=== PATIENT | female | born 1975 | race Hispanic/Latino ===

== ENCOUNTER 2018-11-06 13:24 | Emergency (ER) | payer BC, OTHER ==
[2018-11-06 14:11] LABS: Urine Blood TRACE (NEG); Urine Glucose 2+ (NEG); Urine Protein NEGATIVE (NEG); Urine Specific Gravity <1.005 (1.005-1.030)
[2018-11-06] MEDS ORDERED: ONDANSETRON 4 MG/2 ML VIAL ONE (15:57)
[2018-11-06] MEDS ORDERED: MORPHINE 4 MG/ML SYR ONE ×2 (15:57→19:21)
[2018-11-06 16:02] LABS: Absolute Lymphocytes (CBC) 3.3 K/uL (0.7-4.9); Absolute Monocytes 0.6 K/uL (0.1-1.3); Absolute Neutrophil 6.7 K/uL (1.8-8.0); Basophils % 0.7 % (0-1.3); Eosinophils % 1.8 % (0-4.4); Hematocrit 43.9 % (36.0-45.0); Lymphocytes % 30.1 % (15.3-44.8); MPV 11.6 fL (7.6-11.3); Monocytes % 5.2 % (3.3-12.3); RBC Red Blood Cell Count 5.01 M/uL (3.86-4.86)
[2018-11-06 16:32] LABS: Bicarbonate 24 mmol/L (21-32); Glucose Level 305 mg/dL (74-106); Potassium 4.2 mmol/L (3.5-5.1); Sodium Level 135 mmol/L (136-145)
[2018-11-06 16:33] LABS: ALT/SGPT 15 U/L (12-78); AST/SGOT 16 U/L (15-37); Albumin 3.6 g/dL (3.4-5.0); Alkaline Phosphatase 83 U/L (45-117); BUN Blood Urea Nitrogen 16 mg/dL (7-18); Bilirubin Direct 0.1 mg/dL (0-0.2); Bilirubin Total 0.6 mg/dL (0.2-1.0); Lipase 110 U/L (73-393); Protein, Total 7.7 g/dL (6.4-8.2)
--- NOTE | 2018-11-06 19:31 | RAD REPORT ---
EXAM DESCRIPTION: CT - Abdomen Pelvis W Contrast - 11/06/2018 7:19 pm CLINICAL HISTORY: Intermittent right lower quadrant pain COMPARISON: CT imaging April 2017 TECHNIQUE: Biphasic, helical CT imaging of the abdomen and pelvis was performed following 100 ml non -ionic IV contrast. Oral contrast was given. All CT scans are performed using dose optimization technique as appropriate and may include automated exposure control or mA/KV adjustment according to patient size. FINDINGS: No suspicious findings in the lung bases. The liver, spleen, and pancreas show no suspicious findings. Small hemangioma in the inferior aspect of the right lobe has not changed. Cholecystectomy clips are present. No biliary tree dilatation. Symmetric renal function is seen with no hydronephrosis or suspicious renal mass. No pyelonephritis o r acute parenchymal process. No bladder abnormalities. No adrenal abnormalities. Uterus and ovaries s how no acute findings. No significant change from comparison. No dilated bowel loops or bowel wall thickening. Partially retrocecal appendix is unremarkable. No ac tive bowel process seen. No free air, free fluid or inflammatory stranding. No hernia, mass or bulky lymphadenopathy. No suspicious bony findings. IMPRESSION: Contrast enhanced CT abdomen and pelvis showing no significant or suspicious finding. No significant change from April 2017.
--- NOTE | 2018-11-06 20:02 | ER ---
Nurse's Notes [facility] Name: Jill Arce Age: 43 yrs Sex: Female : 1975 Arrival Date: 11/06/2018 Time: 13:28 Bed 28 [facility] MD: Stephanie Mackay Diagnosis: Abdominal and pelvic pain Presentation: 11/06 13:38 Presenting complaint: Patient states: Intermittent RLQ pain that is described as sharp, ss radiates towards R flank/ mid back area with nausea. Pt states the pain began 2-3 days ago, but this morning became much worse. Transition of care: patient was not received from another setting of care. Onset of symptoms was November 03, 2018. Risk Assessment: Do you want to hurt yourself or someone else? Patient reports no desire to harm self or others. Initial Sepsis Screen: Does the patient meet any 2 criteria? No. Patient's initial sepsis screen is negative. Does the patient have a suspected source of infection? No. Patient's initial sepsis screen is negative. Care prior to arrival: None. 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 ss Historical: - Allergies: 13:40 NKA; ss - Home Meds: 13:40 bisoprolol fumarate 5 mg Oral tab 1 tab once daily [Active]; simvastatin 40 mg oral tab ss [Active]; aspirin 81 mg Oral TbEC 1 tab once daily [Active]; 15:47 glimepiride 4 mg Oral tab 1 tab once daily [Active]; Janumet 50-1,000 mg Oral tab 1 tab mg2 2 times per day [Active]; Jardiance 10 mg Oral tab 1 tab once daily [Active]; Tresiba FlexTouch U-100 100 unit/mL (3 mL) subcutaneous inpn [Active]; - PMHx: 13:40 Diabetes - NIDDM; Hyperlipidemia; Tachycardia; ss - PSHx: 13:40 Cholecystectomy; ss - Immunization history:: Adult Immunizations up to date. - Social history:: Smoking status: Patient/guardian denies using tobacco. - Ebola Screening: : Patient denies exposure to infectious person Patient denies travel to an Ebola-affected area in the 21 days before illness onset. Screenin:46 Abuse screen: Denies threats or abuse. Denies injuries from another. Nutritional mg2 screening: No deficits noted. Tuberculosis screening: No symptoms or risk factors identified. Fall Risk IV access (20 points). Assessment: 15:45 General: Appears in no apparent distress. comfortable, Behavior is calm, cooperative. mg2 Pain: Complains of pain in right lower quadrant and right flank Pain radiates to back Quality of pain is described as aching, Pain began gradually. Neuro: Level of Consciousness is awake, alert, obeys commands, Oriented to person, place, time, situation. Cardiovascular: Capillary refill < 3 seconds Patient's skin is warm and dry. Respiratory: Airway is patent Respiratory effort is even, unlabored, Respiratory pattern is regular, symmetrical. GI: Reports lower abdominal pain. : Reports pain in right flank(s). EENT: No signs and/or symptoms were reported regarding the EENT system. Derm: Skin is intact, is healthy with good turgor, Skin is pink, warm \T\ dry. normal. Musculoskeletal: Circulation, motion, and sensation intact. Capillary refill < 3 seconds. 16:57 Reassessment: Patient appears in no apparent distress at this time. Patient and/or mg2 family updated on plan of care and expected duration. Pain level reassessed. Patient is alert, oriented x 3, equal unlabored respirations, skin warm/dry/pink. Patient states feeling better. 20:17 Reassessment: Patient denies pain at this time. Patient states feeling better. mg2 Vital Signs: 13:37 BP 114 / 84; Pulse 92; Resp 17; Temp 97.8(TE); Pulse Ox 100% on R/A; Weight 84.37 kg; Height 5 ft. 5 in. (165.10 cm); Pain 9/10; 16:57 BP 108 / 71; Pulse 89; Resp 18; Pulse Ox 100% on R/A; Pain 1/10; mg2 18:01 BP 110 / 69; Pulse 80; Resp 18; Pulse Ox 100% on R/A; mg2 19:11 Pulse 83; Resp 18; Pulse Ox 100% on R/A; mg2 20:17 BP 115 / 78; Pulse 80; Resp 18; Pulse Ox 100% on R/A; Pain 0/10; mg2 13:37 Body Mass Index 30.95 (84.37 kg, 165.10 cm) ED Course: 13:28 Patient arrived in ED. rg4 13:28 Stephanie Mackay MD is Private Physician. rg4 13:37 Arm band placed on left wrist. 13:39 Triage completed. ss 15:24 [facility] 15:24 Ludwin Trejo MD is Attending Physician. jmm 15:32 Radiology exam delayed due to lab results not completed at this time. (BUN/Creatinine) vm2 test not completed at this time. 15:42 Alexander Durand, LASHONDA is Primary Nurse. mg2 15:43 Radiology exam delayed due to lab results not completed at this time. (BUN/Creatinine) vm2 test not completed at this time. 15:48 Patient has correct armband on for positive identification. Pulse ox on. NIBP on. Door mg2 closed. 15:48 No provider procedures requiring assistance completed. Inserted saline lock: 22 gauge mg2 in left forearm, using aseptic technique. Blood collected. by LASHONDA Mcgarry. 19:17 CT completed. Patient tolerated procedure well. Patient moved to CT. Patient moved back pr from CT. 19:19 CT Abd/Pelvis - W/Contrast In Process Unspecified. EDMS 20:01 Stephanie Mackay MD is Referral Physician. jmm 20:18 IV discontinued, intact, bleeding controlled, No redness/swelling at site. Pressure mg2 dressing applied. Administered Medications: 15:56 Drug: morphine 4 mg Route: IVP; Site: left forearm; rv 18:19 Follow up: Response: No adverse reaction; Marked relief of symptoms mg2 15:56 Drug: Zofran 4 mg Route: IVP; Site: left forearm; rv 18:19 Follow up: Response: No adverse reaction; Marked relief of symptoms mg2 19:10 Drug: morphine 4 mg Route: IVP; Site: left forearm; mg2 20:10 Follow up: Response: No adverse reaction; Marked relief of symptoms mg2 Outcome: 20:01 Discharge ordered by . jmm 20:18 Discharged to home ambulatory, with family. mg2 20:18 Condition: stable 20:18 Discharge instructions given to patient, family, Instructed on discharge instructions, follow up and referral plans. medication usage, Demonstrated understanding of instructions, follow-up care, medications, Prescriptions given X 1. 20:28 Patient left the ED. mg2 Signatures: Dispatcher [employer] EDMS Billy Retana PA PA jmm Smirch, Francy, RN RN ss Ami Price 4 Kiran Kearney Victoria 2 Alexander Durand, RN RN mg2 Zeferino Muñiz, RN RN rv
--- NOTE | 2018-11-06 20:02 | EDPHYS ---
Physician Documentation [facility] Name: Jill Arce Age: 43 yrs Sex: Female : 1975 Arrival Date: 11/06/2018 Time: 13:28 Bed 28 Private MD: Stephanie Mackay ED Physician Ludwin Trejo HPI: 11/06 15:34 This 43 yrs old Female presents to ER via Ambulatory with complaints of Flank jmm Pain. 15:34 The patient complains of pain in the right flank. Onset: The symptoms/episode jmm began/occurred gradually, 1 day(s) ago. Associated signs and symptoms: Pertinent positives: nausea, vomiting. This is a 43 year old female with a history of DM, that presents to the ED with complaints of right flank pain radiating into her right lower abdomen with 1 episode of vomiting today. Patient denies diarrhea. . 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 ss Historical: - Allergies: 13:40 NKA; ss - Home Meds: 13:40 bisoprolol fumarate 5 mg Oral tab 1 tab once daily [Active]; simvastatin 40 mg oral tab ss [Active]; aspirin 81 mg Oral TbEC 1 tab once daily [Active]; 15:47 glimepiride 4 mg Oral tab 1 tab once daily [Active]; Janumet 50-1,000 mg Oral tab 1 tab mg2 2 times per day [Active]; Jardiance 10 mg Oral tab 1 tab once daily [Active]; Tresiba FlexTouch U-100 100 unit/mL (3 mL) subcutaneous inpn [Active]; - PMHx: 13:40 Diabetes - NIDDM; Hyperlipidemia; Tachycardia; ss - PSHx: 13:40 Cholecystectomy; ss - Immunization history:: Adult Immunizations up to date. - Social history:: Smoking status: Patient/guardian denies using tobacco. - Ebola Screening: : Patient denies exposure to infectious person Patient denies travel to an Ebola-affected area in the 21 days before illness onset. ROS: 15:34 Constitutional: Negative for fever, chills, and weight loss, Cardiovascular: Negative jmm for chest pain, palpitations, and edema, Respiratory: Negative for shortness of breath, cough, wheezing, and pleuritic chest pain. 15:34 Abdomen/GI: Positive for abdominal pain, nausea and vomiting, Negative for diarrhea. 15:34 Back: Positive for flank pain, on the right. 15:34 All other systems are negative. Exam: 15:34 Constitutional: This is a well developed, well nourished patient who is awake, alert, jmm and in no acute distress. Head/Face: atraumatic. Eyes: EOMI, no conjunctival erythema appreciated ENT: Moist Mucus Membranes Neck: Trachea midline, Supple Chest/axilla: Normal chest wall appearance and motion. Cardiovascular: Regular rate and rhythm. No edema appreciated Respiratory: Normal respirations, no respiratory distress appreciated 15:34 Abdomen/GI: Inspection: abdomen appears normal, Bowel sounds: normal, Palpation: soft, mild abdominal tenderness, in the right lower quadrant. 15:34 Back: CVA tenderness, that is mild, is noted on the right. 15:34 Musculoskeletal/extremity: ROM: intact in all extremities. 15:34 Skin: Appearance: Color: normal in color. 15:34 Neuro: Orientation: is normal, Mentation: is normal, Memory: is normal. 15:34 Psych: Behavior/mood is pleasant, cooperative. Vital Signs: 13:37 BP 114 / 84; Pulse 92; Resp 17; Temp 97.8(TE); Pulse Ox 100% on R/A; Weight 84.37 kg; ss Height 5 ft. 5 in. (165.10 cm); Pain 9/10; 16:57 BP 108 / 71; Pulse 89; Resp 18; Pulse Ox 100% on R/A; Pain 1/10; mg2 18:01 BP 110 / 69; Pulse 80; Resp 18; Pulse Ox 100% on R/A; mg2 19:11 Pulse 83; Resp 18; Pulse Ox 100% on R/A; mg2 20:17 BP 115 / 78; Pulse 80; Resp 18; Pulse Ox 100% on R/A; Pain 0/10; mg2 13:37 Body Mass Index 30.95 (84.37 kg, 165.10 cm) MDM: 15:28 Patient medically screened. [facility] 20:00 Data reviewed: vital signs, nurses notes. Counseling: I had a detailed discussion with marshal the patient and/or guardian regarding: the historical points, exam findings, and any diagnostic results supporting the discharge/admit diagnosis, lab results, radiology results, the need for outpatient follow up, to return to the emergency department if symptoms worsen or persist or if there are any questions or concerns that arise at home. ED course: Patient's pain is relieved in the ED. Patient was advised to follow up with GI for further evaluation and otherwise given early appendicitis return precautions. Patient understood and agrees with the plan of care. . 11/06 13:59 Order name: Urine Dipstick--Ancillary (enter results); Complete Time: 15:17 11/06 15:29 Order name: Basic Metabolic Panel; Complete Time: 16:35 [facility] 11/06 15:29 Order name: CBC with Diff; Complete Time: 16:35 [facility] 11/06 15:29 Order name: Creatinine for Radiology; Complete Time: 16:35 [facility] 11/06 15:29 Order name: Hepatic Function; Complete Time: 16:35 [facility] 11/06 15:29 Order name: Lipase; Complete Time: 16:35 [facility] 11/06 13:58 Order name: Urine Dipstick-Ancillary (obtain specimen); Complete Time: 13:58 11/06 13:58 Order name: Urine Test (obtain specimen); Complete Time: 13:58 11/06 15:29 Order name: IV Saline Lock; Complete Time: 16:08 [facility] 11/06 15:29 Order name: CT Abd/Pelvis - W/Contrast; Complete Time: 19:55 [facility] 11/06 16:45 Order name: Test, Serum; Complete Time: 19:24 [facility] 11/06 15:29 Order name: Labs collected and sent; Complete Time: 16:09 [facility] Administered Medications: 15:56 Drug: morphine 4 mg Route: IVP; Site: left forearm; rv 18:19 Follow up: Response: No adverse reaction; Marked relief of symptoms mg2 15:56 Drug: Zofran 4 mg Route: IVP; Site: left forearm; rv 18:19 Follow up: Response: No adverse reaction; Marked relief of symptoms mg2 19:10 Drug: morphine 4 mg Route: IVP; Site: left forearm; mg2 20:10 Follow up: Response: No adverse reaction; Marked relief of symptoms mg2 Disposition: 11/06/18 20:01 Discharged to Home. Impression: Abdominal and pelvic pain. - Condition is Stable. - Discharge Instructions: Abdominal Pain, Adult, Pelvic Pain, Female. - Prescriptions for Ultracet 37.5- 325 mg Oral Tablet - take 1 tablet by ORAL route every 6 hours - for up to 5 days; do not exceed 8 tablets per day.; 12 tablet. - Medication Reconciliation Form, Thank You Letter, Antibiotic Education, Prescription Opioid Use, Work release form, Family Work Release form. - Follow up: Stephanie Mackay MD; When: 1 - 2 days; Reason: Recheck today's complaints, Continuance of care, Re-evaluation by your physician. Signatures: Dispatcher [employer] EDMS Billy Retana PA PA jmm Smirch, Shelby, RN RN ss Kulwant Linder MD MD gs Alexander Durand RN RN mg2 Zeferion Muñiz RN RN rv Corrections: (The following items were deleted from the chart) 20:28 20:01 11/06/2018 20:01 Discharged to Home. Impression: Abdominal and pelvic pain. mg2 Condition is Stable. Forms are Medication Reconciliation Form, Thank You Letter, Antibiotic Education, Prescription Opioid Use. Follow up: Stephanie Mackay; When: 1 - 2 days; Reason: Recheck today's complaints, Continuance of care, Re-evaluation by your physician. marshal
[2018-11-06 20:33] VITALS: TEMP 97.8; O2SAT 100
[2018-11-06 20:38] VITALS: BP 115/78
== END 2018-11-06 20:28 | disposition home or self-care (01) ==
LOC: ER 13:24
DX: R10.2 Pelvic and perineal pain (principal); E78.5 Hyperlipidemia, unspecified; E11.9 Type 2 diabetes mellitus without complications; Z79.82 Long term (current) use of aspirin; Z79.4 Long term (current) use of insulin
CPT/HCPCS: 36415; 74177; 80048; 80076; 81003; 83690; 84703; 85025; J2405; Q9967

== ENCOUNTER 2018-11-30 07:02 | Day surgery (SDC) | payer OTHER ==
[2018-11-30 07:23] LABS: Specific Gravity >= 1.030 (1.005-1.030)
[2018-11-30] MEDS ORDERED: CEFAZOLIN/SWI 1gm 1 GM/10 ML SYR ONE (07:30)
[2018-11-30] MEDS ORDERED: NA CHLORIDE 0.9% 1,000 ML ONE (07:30)
[2018-11-30] MEDS ORDERED: BUPIVACA 0.5%/EPI 0.0005%/PF 10 ML VIAL ONE (07:45)
[2018-11-30] MEDS ORDERED: PROPOFOL 200 MG/20 ML VIAL IV ONE (08:00)
[2018-11-30] MEDS ORDERED: MIDAZOLAM HCL 2 MG/2 ML INJ ONE (08:03)
[2018-11-30] MEDS ORDERED: LIDOCAINE 2% MPF 5 ML VIAL ONE (08:03)
[2018-11-30] MEDS ORDERED: FENTANYL CITR 100 MCG/2 ML ONE (08:03)
[2018-11-30] MEDS ORDERED: ONDANSETRON 4 MG/2 ML VIAL ONE (08:04)
--- NOTE | 2018-11-30 08:49 | P.OP ---
Preoperative diagnosis: Infected Sebaceous Cyst of Sternum Postoperative diagnosis: Infected Sebaceous Cyst of Sternum Primary procedure: Wide Local Excision of Infected Sebaceous Cyst of Sternum Anesthesia: GETA + Local Estimated blood loss: <5cc Specimen: Cultures and sternal tissue Findings: sebaceous material with pus Complications: None Transferred to: Recovery Room Condition: Good
[2018-11-30 10:20] VITALS: BP 107/71; TEMP 98; O2SAT 98
[2018-11-30] MEDS ORDERED: CODEINE 30MG/APAP 300MG TAB ONE (10:28)
--- NOTE | 2018-11-30 18:54 | OP ---
Date of Procedure: 11/30/2018 Surgeon: Fei Haley MD, Preoperative Diagnosis: Infected sebaceous cyst of sternum. Postoperative Diagnosis: Infected sebaceous cyst of sternum. Procedure Performed: Wide local excision of infected sebaceous cyst of sternum. Anesthesia: General endotracheal plus local cord with 0.5% Marcaine with epinephrine. Estimated Blood Loss: Less than 5 cc. Specimen: Cultures and sternal tissue. Findings: Sebaceous cyst material with pus approximately 3.5 cm x 2.5 cm x 3.5 cm depth. Disposition: Transferred to recovery room in good condition. Procedure In Detail: After informed consent was obtained, the patient was brought to the operating r oom, prepped and draped in the usual sterile fashion. After adequate anesthesia was achieved, a cent ral sternal cyst was anesthetized with 0.5% Marcaine with epinephrine. An elliptical incision was ma de around this for approximately 30 cm length. Dissection was continued down using electrocautery. Some purulent material was encountered. This was cultured for aerobic and anaerobic culture sent off at this time and the cyst was circumferentially removed intact with a rim of normal tissue and down to the adipose tissue only. This was sent off for pathologic examination. The incision site was the n copiously irrigated multiple times until completely clear. Hemostasis was easily achieved with lubna ctrocautery. The deep layers were closed using interrupted 3-0 Vicryl sutures, and the skin layer wa s closed with interrupted nylon sutures with good approximation of tissues. A sterile dressing was p laced over top. The patient tolerated the procedure well without evidence of complication and transferred to PACU in good condition. All counts were correct at the e nd of the case. DEX/BRANDON Voice ID: [id number] Report ID: [id number]
== END 2018-11-30 10:54 | disposition home or self-care (01) ==
LOC: OR 07:02
PROVIDERS: ATTEND Surgery
PROC: 0JB60ZZ Excision of Chest Subcutaneous Tissue and Fascia, Open Approach (ICD-10-PCS; principal; 2018-11-30 08:30)
DX: L72.3 Sebaceous cyst (principal); E11.9 Type 2 diabetes mellitus without complications; I10 Essential (primary) hypertension; E78.5 Hyperlipidemia, unspecified; E66.9 Obesity, unspecified; K76.0 Fatty (change of) liver, not elsewhere classified; Z90.49 Acquired absence of other specified parts of digestive tract; Z83.3 Family history of diabetes mellitus; Z82.49 Family history of ischemic heart disease and other diseases of the circulatory system
CPT/HCPCS: 81025; 82962; 87070; 87075; 87077; 87186; 87205; 88304; J0690; J2250; J2405; J2704; J3010; J7030

== ENCOUNTER 2019-04-21 18:21 | Emergency (ER) | payer OTHER ==
[2019-04-21] MEDS ORDERED: KETOROLAC 30 MG/ML INJ ONE (18:47)
[2019-04-21] MEDS ORDERED: NA CHLORIDE 0.9% 1,000 ML ONE (18:48)
[2019-04-21] MEDS ORDERED: ONDANSETRON 4 MG/2 ML VIAL ONE (18:48)
[2019-04-21 19:06] LABS: Absolute Lymphocytes (CBC) 3.2 K/uL (0.7-4.9); Basophils % 0.5 % (0-1.3); Lymphocytes % 37.6 % (15.3-44.8); MPV 10.1 fL (7.6-11.3); RBC Red Blood Cell Count 4.56 M/uL (3.86-4.86)
[2019-04-21 19:19] LABS: Potassium 3.7 mmol/L (3.5-5.1)
--- NOTE | 2019-04-21 19:46 | RAD REPORT ---
EXAM DESCRIPTION: CTAbdomen Pelvis W Contrast - 04/21/2019 7:34 pm CLINICAL HISTORY: Abdominal pain. ABD PAIN COMPARISON: Abdomen Pelvis W Contrast dated 11/06/2018; Abdomen Pelvis W Contrast dated 7; Abdomen Pelvis W Contrast dated 11/10/2015; CT ABD PELVIS W CONTRAST dated 04/03/[address]: [address] imaging of the abdomen and pelvis was performed with 100 ml non-ionic IV cont rast. All CT scans are performed using dose optimization technique as appropriate and may include automated exposure control or mA/KV adjustment according to patient size. FINDINGS: The lung bases are clear. Cholecystectomy. The liver demonstrates a stable 2 cm hemangioma within the far inferior right lobe. No aggressive amarilys er lesion or biliary dilatation. Spleen, pancreas, adrenal glands and kidneys are within normal limit s. No bowel obstruction, free air, free fluid or abscess. The appendix is normal. No evidence of signi ficant lymphadenopathy. No suspicious bony findings. IMPRESSION: No acute intra-abdominal or pelvic finding.
--- NOTE | 2019-04-21 19:54 | ER ---
Nurse's Notes [facility] Name: Jill Arce Age: 44 yrs Sex: Female : 1975 Arrival Date: 04/21/2019 Time: 18:24 Bed 6 Private MD: Stephanie Mackay Diagnosis: Lower abdominal pain, unspecified Presentation: 04/21 18:27 Presenting complaint: Patient states: RLQ abd pain for 2 days, diarrhea for one day. la1 Transition of care: patient was not received from another setting of care. Onset of symptoms was April 21, 2019. Risk Assessment: Do you want to hurt yourself or someone else? Patient reports no desire to harm self or others. Initial Sepsis Screen: Does the patient meet any 2 criteria? No. Patient's initial sepsis screen is negative. Does the patient have a suspected source of infection? No. Patient's initial sepsis screen is negative. Care prior to arrival: None. 18:27 Method Of Arrival: Ambulatory la1 18:27 Acuity: DAWOOD 3 la1 Triage Assessment: 18:30 General: Appears in no apparent distress. uncomfortable, obese, Behavior is bp cooperative, appropriate for age, anxious. Pain: Complains of pain in right lower quadrant. EENT: No deficits noted. Neuro: No deficits noted. Cardiovascular: No deficits noted. Respiratory: No deficits noted. GI: Reports lower abdominal pain, diarrhea. : No signs and/or symptoms were reported regarding the genitourinary system. Derm: No deficits noted. Musculoskeletal: No deficits noted. 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 - Social history:: Smoking status: Patient/guardian denies using tobacco. - Ebola Screening: : No symptoms or risks identified at this time. Screenin:42 Abuse screen: Denies threats or abuse. Denies injuries from another. Nutritional bp screening: No deficits noted. Tuberculosis screening: No symptoms or risk factors identified. Fall Risk None identified. Assessment: 18:30 General: SEE TRIAGE NOTE. bp 19:10 General: Appears uncomfortable, Behavior is appropriate for age. Pain: Complains of ea pain in left lower quadrant and right lower quadrant. Neuro: Level of Consciousness is awake, alert, obeys commands, Oriented to person, place, time, situation. Cardiovascular: Patient's skin is warm and dry. Respiratory: Airway is patent Respiratory effort is even, unlabored, Respiratory pattern is regular, symmetrical. Derm: Skin is pink, warm \T\ dry. 19:15 GI: Bowel sounds present X 4 quads. Abd is soft and non tender X 4 quads. cc3 19:31 Reassessment: Patient and/or family updated on plan of care and expected duration. Pain ea level reassessed. Patient is alert, oriented x 3, equal unlabored respirations, skin warm/dry/pink. Pt taken to CT. 19:40 Reassessment: Patient came back from CT scan department, awaiting result. cc3 20:00 Reassessment: Patient appears in no apparent distress at this time. Patient and/or cc3 family updated on plan of care and expected duration. Pain level reassessed. Patient is alert, oriented x 3, equal unlabored respirations, skin warm/dry/pink. HORTENSIA Mayfield discharged the patient home with prescriptions given. IV cannula removed and patient left ER vitally stable and ambulatory with her daughter. No valuables left in the patient's room. Patient denies pain at this time. Patient states feeling better. Patient states symptoms have improved. Vital Signs: 18:28 BP 135 / 81; Pulse 96; Resp 16; Temp 98.1; Pulse Ox 100% on R/A; Weight 86.18 kg; la1 Height 5 ft. 5 in. (165.10 cm); 19:20 BP 119 / 75; Pulse 83; Resp 17 S; Temp 98.4(O); Pulse Ox 100% on R/A; Pain 8/10; cc3 20:00 BP 131 / 81; Pulse 80; Resp 16 S; Pulse Ox 100% on R/A; Pain 2/10; cc3 18:28 Body Mass Index 31.62 (86.18 kg, 165.10 cm) la1 ED Course: 18:24 Patient arrived in ED. mr 18:24 Stephanie Mackay MD is Private Physician. mr 18:27 Arm band placed on right wrist. la1 18:28 Triage completed. la1 18:29 Karol [facility]field FNP-C [facility]. kb 18:29 Royce Hwang MD is Attending Physician. kb 18:30 Jian Lundberg, RN is Primary Nurse. bp 18:42 Patient has correct armband on for positive identification. Bed in low position. Call bp light in reach. Side rails up X2. Adult w/ patient. 18:49 Radiology exam delayed due to lab results not completed at this time. (BUN/Creatinine) kw1 test not completed at this time. 19:00 Inserted saline lock: 22 gauge in right forearm, using aseptic technique. Blood bp collected. 19:34 CT Abd/Pelvis - IV Contrast Only In Process Unspecified. EDMS 20:00 No provider procedures requiring assistance completed. IV discontinued, intact, cc3 bleeding controlled, No redness/swelling at site. Pressure dressing applied. Administered Medications: 19:00 Drug: NS 0.9% 1000 ml Route: IV; Rate: 1000 ml; Site: right forearm; bp 20:00 Follow up: Response: No adverse reaction; IV Status: Completed infusion; IV Intake: cc3 1000ml 19:00 Drug: Zofran 4 mg Route: IVP; Site: right forearm; bp 19:20 Follow up: Response: No adverse reaction; Nausea is decreased cc3 19:00 Drug: TORadol 30 mg Route: IVP; Site: right forearm; bp 19:20 Follow up: Response: No adverse reaction; Pain is decreased cc3 Intake: 20:00 IV: 1000ml; Total: 1000ml. cc3 Outcome: 19:52 Discharge ordered by MD. kb 20:00 Discharged to home ambulatory, with family. cc3 20:00 Condition: stable 20:00 Discharge instructions given to patient, Instructed on discharge instructions, follow up and referral plans. medication usage, Demonstrated understanding of instructions, follow-up care, medications, Prescriptions given X 2. 20:05 Patient left the ED. cc3 Signatures: Dispatcher [employer] EDPR Karol Mayfield FNP-C FNP-Parker nAju LagosVictorino, RN RN Mary Hammond RN RN ea Peltier, Brian, RN RN bp Talia Mckinley kw1 Zo Bone cc3
--- NOTE | 2019-04-21 19:54 | EDPHYS ---
Physician Documentation [facility] Name: Jill Arce Age: 44 yrs Sex: Female : 1975 Arrival Date: 04/21/2019 Time: 18:24 Bed 6 Private MD: Stephanie Mackay ED Physician Royce Hwang HPI: 04/21 18:52 This 44 yrs old Female presents to ER via Ambulatory with complaints of kb Abdominal Pain. 18:52 The patient presents with abdominal pain right lower quadrant. Onset: The kb symptoms/episode began/occurred 3 day(s) ago. The symptoms do not radiate. Associated signs and symptoms: Pertinent positives: diarrhea, nausea, Pertinent negatives: dysuria, fever, vomiting. The symptoms are described as constant. Modifying factors: The symptoms are alleviated by nothing, the symptoms are aggravated by pressure. Severity of pain: At its worst the pain was moderate in the emergency department the pain is unchanged. The patient has not experienced similar symptoms in the past. The patient has not recently seen a physician. Pt reports pain to abd that started on and is now localized to RLQ. 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 - Social history:: Smoking status: Patient/guardian denies using tobacco. - Ebola Screening: : No symptoms or risks identified at this time. ROS: 18:52 Constitutional: Negative for fever, chills, and weight loss, ENT: Negative for injury, kb pain, and discharge, Neck: Negative for injury, pain, and swelling, Cardiovascular: Negative for chest pain, palpitations, and edema, Respiratory: Negative for shortness of breath, cough, wheezing, and pleuritic chest pain, Back: Negative for injury and pain, : Negative for injury, bleeding, discharge, and swelling, MS/Extremity: Negative for injury and deformity, Skin: Negative for injury, rash, and discoloration, Neuro: Negative for headache, weakness, numbness, tingling, and seizure. 18:52 Abdomen/GI: Positive for abdominal pain, nausea, diarrhea. Exam: 18:52 Constitutional: This is a well developed, well nourished patient who is awake, alert, kb and in no acute distress. Head/Face: Normocephalic, atraumatic. ENT: Nares patent. No nasal discharge, no septal abnormalities noted. Tympanic membranes are normal and external auditory canals are clear. Oropharynx with no redness, swelling, or masses, exudates, or evidence of obstruction, uvula midline. Mucous membranes moist. Neck: Trachea midline, no thyromegaly or masses palpated, and no cervical lymphadenopathy. Supple, full range of motion without nuchal rigidity, or vertebral point tenderness. No Meningismus. Chest/axilla: Normal chest wall appearance and motion. Nontender with no deformity. No lesions are appreciated. Cardiovascular: Regular rate and rhythm with a normal S1 and S2. No gallops, murmurs, or rubs. Normal PMI, no JVD. No pulse deficits. Respiratory: Lungs have equal breath sounds bilaterally, clear to auscultation and percussion. No rales, rhonchi or wheezes noted. No increased work of breathing, no retractions or nasal flaring. Back: No spinal tenderness. No costovertebral tenderness. Full range of motion. Skin: Warm, dry with normal turgor. Normal color with no rashes, no lesions, and no evidence of cellulitis. MS/ Extremity: Pulses equal, no cyanosis. Neurovascular intact. Full, normal range of motion. Neuro: Awake and alert, GCS 15, oriented to person, place, time, and situation. Cranial nerves II-XII grossly intact. Motor strength 5/5 in all extremities. Sensory grossly intact. Cerebellar exam normal. Normal gait. 18:52 Abdomen/GI: Inspection: abdomen appears normal, Bowel sounds: normal, in all quadrants, Palpation: soft, in all quadrants, moderate abdominal tenderness, in the right lower quadrant and left lower quadrant. Vital Signs: 18:28 BP 135 / 81; Pulse 96; Resp 16; Temp 98.1; Pulse Ox 100% on R/A; Weight 86.18 kg; la1 Height 5 ft. 5 in. (165.10 cm); 19:20 BP 119 / 75; Pulse 83; Resp 17 S; Temp 98.4(O); Pulse Ox 100% on R/A; Pain 8/10; cc3 20:00 BP 131 / 81; Pulse 80; Resp 16 S; Pulse Ox 100% on R/A; Pain 2/10; cc3 18:28 Body Mass Index 31.62 (86.18 kg, 165.10 cm) la1 MDM: 18:29 Patient medically screened. kb 18:51 Data reviewed: vital signs, nurses notes. Data interpreted: Pulse oximetry: on room air kb is 100 %. Interpretation: normal. 19:50 Counseling: I had a detailed discussion with the patient and/or guardian regarding: the kb historical points, exam findings, and any diagnostic results supporting the discharge/admit diagnosis, lab results, radiology results, the need for outpatient follow up, a family practitioner, to return to the emergency department if symptoms worsen or persist or if there are any questions or concerns that arise at home. 04/21 18:44 Order name: Basic Metabolic Panel; Complete Time: 19:21 jl7 04/21 18:44 Order name: CBC with Diff; Complete Time: 19:13 [facility] 04/21 18:44 Order name: CT Abd/Pelvis - IV Contrast Only; Complete Time: 19:50 7 04/21 18:45 Order name: Urine Dipstick--Ancillary (enter results) [facility] 04/21 18:45 Order name: Urine --Ancillary (enter results) [facility] 04/21 18:44 Order name: IV Saline Lock; Complete Time: 19:00 jl7 04/21 18:44 Order name: Labs collected and sent; Complete Time: 19:00 jl7 Administered Medications: 19:00 Drug: NS 0.9% 1000 ml Route: IV; Rate: 1000 ml; Site: right forearm; bp 20:00 Follow up: Response: No adverse reaction; IV Status: Completed infusion; IV Intake: cc3 1000ml 19:00 Drug: Zofran 4 mg Route: IVP; Site: right forearm; bp 19:20 Follow up: Response: No adverse reaction; Nausea is decreased cc3 19:00 Drug: TORadol 30 mg Route: IVP; Site: right forearm; bp 19:20 Follow up: Response: No adverse reaction; Pain is decreased cc3 Disposition: 04/22 07:17 Co-signature as Attending Physician, Royce Hwang MD I agree with the assessment and kdr plan of care. Disposition: 04/21/19 19:52 Discharged to Home. Impression: Lower abdominal pain, unspecified. - Condition is Stable. - Discharge Instructions: Abdominal Pain, Adult, Kpin-jp-Iups. - Prescriptions for Diclofenac Sodium 75 mg Oral Tablet, Delayed Release (E.C.) - take 1 tablet by ORAL route 2 times per day As needed; 30 tablet. Zofran 4 mg Oral Tablet - take 1 tablet by ORAL route every 6 hours As needed; 20 tablet. - Medication Reconciliation Form, Thank You Letter, Antibiotic Education, Prescription Opioid Use form. - Follow up: Emergency Department; When: As needed; Reason: Worsening of condition. Follow up: Private Physician; When: 2 - 3 days; Reason: Recheck today's complaints, Continuance of care, Re-evaluation by your physician. Signatures: Dispatcher [employer] EDMS Karol Mayfield, YOAN-C TELE MARKETING EXECUTIVE-Ckb Royce Hwang MD MD kdr Attema, Lee RN RN la1 Ford Knight RN RN jl7 Jian Lundberg RN RN bp Zo Bone cc3 Corrections: (The following items were deleted from the chart) 04/21 20:05 19:52 04/21/2019 19:52 Discharged to Home. Impression: Lower abdominal pain, cc3 unspecified. Condition is Stable. Forms are Medication Reconciliation Form, Thank You Letter, Antibiotic Education, Prescription Opioid Use. Follow up: Emergency Department; When: As needed; Reason: Worsening of condition. Follow up: Private Physician; When: 2 - 3 days; Reason: Recheck today's complaints, Continuance of care, Re-evaluation by your physician. kb
[2019-04-21 20:13] VITALS: O2SAT 100
[2019-04-21 20:13] LABS: Urine Blood NEGATIVE (NEG); Urine Glucose 2+ (NEG); Urine Protein NEGATIVE (NEG); Urine Specific Gravity 1.015 (1.005-1.030)
[2019-04-21 20:14] VITALS: BP 119/75; TEMP 98.4
== END 2019-04-21 20:05 | disposition home or self-care (01) ==
LOC: ER 18:21
DX: R10.31 Right lower quadrant pain (principal)
CPT/HCPCS: 96361; 85025; 80048; 36415; 81025; 81003; 74177; 96375; 96374; 99284; Q9967; J7030; J2405

== ENCOUNTER 2021-06-16 16:12 | Emergency (ER) | payer OTHER ==
--- OUTSIDE RECORDS SUMMARY | 2021-06-16 16:14 | XMS REPORT | Continuity of Care Document ---
:1975 Author Organization [facility] t Address [address] [place] [address] Dr. Jonas [address] [place] [id number] Care Team Providers Name Role Phone Colten MYLES Attending Clinician Unavailable Payers Payer Name Policy Type Policy Number Effective Date Expiration Date S spike [facility] - [id number] 2014 00:00:00 OUT OF STATE Problems This patient has no known problems. Allergies, Adverse Reactions, Alerts Allergy Allergy Status Severity Reaction(s) Onset Inactive Treating Comm ents Source Name Type Date Date Clinician NO KNOWN Drug Active [facility] DRUG Class 2-20 ity of [place] 00:00: [address] Medications This patient has no known medications. Procedures This patient has no known procedures. Encounters Start End Encounter Admission Attending Care Care Encounter Source Date/Time Date/Time Type Type Clinicians Facility Department ID 2021-03-20 2021-03-20 Outpatient Shannan MYLES [facility] [id number] [facility] 08:15:00 08:15:00 YSABEL [id number] [facility] 2021-03-20 2021-03-20 Outpatient Shannan MYLES [facility] [id number] [facility] 08:15:00 08:15:00 YSABEL [facility] Results This patient has no known results.
[2021-06-16 18:09] LABS: Urine Blood Negative (Negative); Urine Glucose Negative (Negative); Urine Protein Negative (Negative)
[2021-06-16 18:11] LABS: Absolute Lymphocytes (CBC) 4.3 K/uL (0.7-4.9); Basophils % 0.9 % (0-1.3); Hematocrit 42.9 % (36.0-45.0); Lymphocytes % 34.6 % (15.3-44.8); MPV 10.3 fL (7.6-11.3); RBC Red Blood Cell Count 5.07 M/uL (3.86-4.86)
[2021-06-16 18:17] LABS: Urine Bacteria <20 /HPF (<20); Urine Mucus 1+ /HPF (NONE SEEN); Urine RBC <5 /HPF (NONE SEEN)
[2021-06-16] MEDS ORDERED: MORPHINE 4 MG/ML SYR ONE (18:27)
[2021-06-16 18:28] LABS: Albumin 3.6 g/dL (3.4-5.0); Bilirubin Direct 0.2 mg/dL (0-0.2); Bilirubin Total 0.9 mg/dL (0.2-1.0); Potassium 3.5 mmol/L (3.5-5.1); Protein, Total 8.3 g/dL (6.4-8.2)
[2021-06-16] MEDS ORDERED: ONDANSETRON 4 MG/2 ML VIAL ONE (18:28)
--- NOTE | 2021-06-16 19:20 | RAD REPORT ---
EXAM DESCRIPTION: CT - Abdomen Pelvis W Contrast - 06/16/2021 6:54 pm CLINICAL HISTORY: Abdominal pain COMPARISON: 2019 TECHNIQUE: Computed axial tomography of the abdomen pelvis was obtained. 100 cc Isovue-300 was admin istered intravenously. Oral contrast was not requested which limits evaluation of bowel. All CT scans are performed using dose optimization technique as appropriate and may include automated exposure control or mA/KV adjustment according to patient size. FINDINGS: The liver, spleen, pancreas, and adrenals appear unremarkable. Mild bilateral renal cortical thinning may be secondary to prior inflammation. There is no evidence of diverticulitis. Normal appendix Cholecystectomy. Tiny umbilical hernia IMPRESSION: No acute abnormality is displayed.
--- NOTE | 2021-06-16 20:31 | EDPHYS ---
Physician Documentation [facility] Name: Jill Arce Age: 46 yrs Sex: Female : 1975 Arrival Date: 06/16/2021 Time: 16:19 Bed 18 Private MD: ED Physician Danny Landon HPI: 06/16 18:25 This 46 yrs old Female presents to ER via Ambulatory with complaints of jr8 Abdominal Pain. 18:25 This is a 46-year-old female who presented to the emergency room with complaints of jr8 right lower quadrant abdominal pain and diarrhea. Patient stated that is been hurting on and off for the past week but for the past 3 days has been continuous. Denies fevers but has had body aches and chills. No other symptoms at this time other than the aforementioned.. 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 Historical: - Allergies: 16:48 NKA; ld1 - Home Meds: 16:48 aspirin 81 mg Oral TbEC 1 tab once daily [Active]; bisoprolol fumarate 5 mg Oral tab 1 ld1 tab once daily [Active]; glimepiride 4 mg Oral tab 1 tab once daily [Active]; Janumet 50-1,000 mg Oral tab 1 tab 2 times per day [Active]; Jardiance 10 mg Oral tab 1 tab once daily [Active]; simvastatin 40 mg Oral tab [Active]; Tresiba FlexTouch U-100 100 unit/mL (3 mL) subcutaneous inpn [Active]; Metformin Oral [Active]; - PMHx: 16:48 Diabetes - NIDDM; Hyperlipidemia; Tachycardia; ld1 - PSHx: 16:48 Cholecystectomy; ld1 - Immunization history:: Adult Immunizations up to date, Client reports receiving the 2nd dose of the Covid vaccine. - Social history:: Smoking status: Patient denies any tobacco usage or history of. Patient/guardian denies using alcohol. ROS: 18:25 Eyes: Negative for injury, pain, redness, and discharge, ENT: Negative for injury, jr8 pain, and discharge, Neck: Negative for injury, pain, and swelling, Cardiovascular: Negative for chest pain, palpitations, and edema, Respiratory: Negative for shortness of breath, cough, wheezing, and pleuritic chest pain, Back: Negative for injury and pain, MS/Extremity: Negative for injury and deformity, Skin: Negative for injury, rash, and discoloration, Neuro: Negative for headache, weakness, numbness, tingling, and seizure. 18:25 Abdomen/GI: Positive for abdominal pain, diarrhea, Negative for nausea, vomiting, abdominal distension, hematemesis, black/tarry stool, rectal pain, rectal bleeding, bowel incontinence, flatulence. Exam: 18:25 Cardiovascular: Regular rate and rhythm with a normal S1 and S2. No gallops, murmurs, jr8 or rubs. Normal PMI, no JVD. No pulse deficits. Respiratory: Lungs have equal breath sounds bilaterally, clear to auscultation and percussion. No rales, rhonchi or wheezes noted. No increased work of breathing, no retractions or nasal flaring. Back: No spinal tenderness. No costovertebral tenderness. Full range of motion. Skin: Warm, dry with normal turgor. Normal color with no rashes, no lesions, and no evidence of cellulitis. MS/ Extremity: Pulses equal, no cyanosis. Neurovascular intact. Full, normal range of motion. Neuro: Awake and alert, GCS 15, oriented to person, place, time, and situation. Cranial nerves II-XII grossly intact. Motor strength 5/5 in all extremities. Sensory grossly intact. 18:25 Abdomen/GI: Inspection: obese Bowel sounds: active, all quadrants, Palpation: soft, in all quadrants, moderate abdominal tenderness, in the right lower quadrant, mass, is not appreciated, rebound tenderness, is not appreciated, voluntary guarding, is not appreciated, involuntary guarding, is not appreciated, no appreciated organomegaly, Indicators: McBurney's point is not tender, Correia's sign is negative, Rovsing's sign is negative, Liver: tenderness, is not appreciated. Vital Signs: 16:45 BP 125 / 72; Pulse 96; Resp 18; Temp 97.8(O); Pulse Ox 100% on R/A; Weight 86.18 kg; ld1 Height 5 ft. 5 in. (165.10 cm); Pain 9/10; 18:34 BP 109 / 75; Pulse 97; Resp 18; Pulse Ox 100% on R/A; Pain 9/10; ll1 19:56 BP 111 / 77; Pulse 95; Resp 18; Pulse Ox 100% on R/A; ld1 16:45 Body Mass Index 31.62 (86.18 kg, 165.10 cm) ld1 MDM: 17:43 Patient medically screened. [facility] 20:29 Data reviewed: vital signs, nurses notes, lab test result(s), radiologic studies, CT jr8 scan, and as a result, I will discharge patient. Data interpreted: Pulse oximetry: on room air is 100 %. Interpretation: normal. Counseling: I had a detailed discussion with the patient and/or guardian regarding: the historical points, exam findings, and any diagnostic results supporting the discharge/admit diagnosis, lab results, radiology results, the need for outpatient follow up, a family practitioner, to return to the emergency department if symptoms worsen or persist or if there are any questions or concerns that arise at home. Response to treatment: the patient's symptoms have mildly improved after treatment. Special discussion: Based on the patient's Hx, exam, and Dx evaluation, there is no indication for emergent surgery or inpatient Tx. It is understood by the patient/guardian that if the Sx's persist or worsen they need to return immediately for re-evaluation. 06/16 17:42 Order name: Basic Metabolic Panel [facility] 06/16 17:42 Order name: CBC with Diff; Complete Time: 18:15 [facility] 06/16 17:42 Order name: Hepatic Function; Complete Time: 18:35 [facility] 06/16 17:42 Order name: Lipase; Complete Time: 18:35 [facility] 06/16 17:42 Order name: Urine Microscopic Only; Complete Time: 18:22 [facility] 06/16 17:43 Order name: Basic Metabolic Panel; Complete Time: 18:35 [facility] 06/16 17:42 Order name: IV Saline Lock; Complete Time: 17:48 [facility] 06/16 18:09 Order name: Urine Dipstick-Ancillary; Complete Time: 18:11 [facility] 06/16 18:19 Order name: Urine Culture [facility] 06/16 18:21 Order name: Urine --Ancillary (enter results) 06/16 18:21 Order name: Urine --Ancillary; Complete Time: 18:27 [facility] 06/16 18:22 Order name: CT Abd/Pelvis - IV Contrast Only; Complete Time: 20:29 [facility] 06/16 17:42 Order name: Labs collected and sent; Complete Time: 17:48 jr8 06/16 17:42 Order name: Urine Dipstick-Ancillary (obtain specimen); Complete Time: 18:22 jr8 06/16 17:42 Order name: Urine Test (obtain specimen); Complete Time: 18:22 jr8 Administered Medications: 18:34 Drug: morphine 4 mg {Note: rass 0.} Route: IVP; Site: right forearm; ll1 19:27 Follow up: Response: No adverse reaction ll1 18:34 Drug: Zofran (Ondansetron) 4 mg Route: IVP; Site: right forearm; ll1 19:27 Follow up: Response: No adverse reaction ll1 Disposition: 06/17 10:31 Co-signature as Attending Physician, Danny Landon MD I agree with the assessment and mik plan of care. Disposition Summary: 06/16/21 20:30 Discharge Ordered Location: Home jr8 Problem: new jr8 Symptoms: have improved jr8 Condition: Stable jr8 Diagnosis - UTI/ Urinary tract infection, site not specified jr8 - Right lower quadrant abdominal tenderness jr8 Followup: jr8 - With: Private Physician - When: 2 - 3 days - Reason: Recheck today's complaints, Continuance of care, Re-evaluation by your physician Discharge Instructions: - Discharge Summary Sheet jr8 - Abdominal Pain, Adult jr8 - Urinary Tract Infection, Adult jr8 Forms: - Medication Reconciliation Form jr8 - Thank You Letter jr8 - Antibiotic Education jr8 - Prescription Opioid Use jr8 - Family Work Release ld1 - Work release form ld1 Prescriptions: - Macrobid 100 mg Oral Capsule - take 1 capsule by ORAL route every 12 hours for 7 days; 14 capsule; Refills: 0, jr8 Product Selection Permitted Signatures: Dispatcher [employer] Danny Soliman MD MD cha Roszak, Josh, PA PA jr8 Pramod Delgado RN RN ll1 Martha Urbina RN RN ld1
--- NOTE | 2021-06-16 20:31 | ER ---
Nurse's Notes [facility] Name: Jill Arce Age: 46 yrs Sex: Female : 1975 Arrival Date: 06/16/2021 Time: 16:19 Bed 18 Private MD: Diagnosis: UTI/ Urinary tract infection, site not specified;Right lower quadrant abdominal tenderness Presentation: 06/16 16:45 Chief complaint: Patient states: I have been having intermittent RLQ pain X 1 week, the ld1 past three days have been continuous stabbing pain. Coronavirus screen: At this time, the client does not indicate any symptoms associated with coronavirus-19. Ebola Screen: No symptoms or risks identified at this time. Initial Sepsis Screen: Does the patient meet any 2 criteria? No. Patient's initial sepsis screen is negative. Does the patient have a suspected source of infection? No. Patient's initial sepsis screen is negative. Risk Assessment: Do you want to hurt yourself or someone else? Patient reports no desire to harm self or others. Onset of symptoms was June 16, 2021. 16:45 Method Of Arrival: Ambulatory ld1 16:45 Acuity: DAWOOD 3 ld1 Triage Assessment: 16:48 General: Appears in no apparent distress. comfortable, Behavior is calm, cooperative, ld1 appropriate for age. Pain: Complains of pain in right lower quadrant Pain does not radiate. Pain currently is 8 out of 10 on a pain scale. Quality of pain is described as sharp, shooting, stabbing, throbbing, Pain began gradually, Is intermittent. EENT: No signs and/or symptoms were reported regarding the EENT system. Neuro: Level of Consciousness is awake, alert, obeys commands, Oriented to person, place, time, situation, Appropriate for age. Cardiovascular: Capillary refill < 3 seconds Patient's skin is warm and dry. Respiratory: Airway is patent Respiratory effort is even, unlabored, Respiratory pattern is regular, symmetrical. GI: Abdomen is round non-distended. : No signs and/or symptoms were reported regarding the genitourinary system. Derm: No signs and/or symptoms reported regarding the dermatologic system. Musculoskeletal: No signs and/or symptoms reported regarding the musculoskeletal system. 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 ld1 Historical: - Allergies: 16:48 NKA; ld1 - Home Meds: 16:48 aspirin 81 mg Oral TbEC 1 tab once daily [Active]; bisoprolol fumarate 5 mg Oral tab 1 ld1 tab once daily [Active]; glimepiride 4 mg Oral tab 1 tab once daily [Active]; Janumet 50-1,000 mg Oral tab 1 tab 2 times per day [Active]; Jardiance 10 mg Oral tab 1 tab once daily [Active]; simvastatin 40 mg Oral tab [Active]; Tresiba FlexTouch U-100 100 unit/mL (3 mL) subcutaneous inpn [Active]; Metformin Oral [Active]; - PMHx: 16:48 Diabetes - NIDDM; Hyperlipidemia; Tachycardia; ld1 - PSHx: 16:48 Cholecystectomy; ld1 - Immunization history:: Adult Immunizations up to date, Client reports receiving the 2nd dose of the Covid vaccine. - Social history:: Smoking status: Patient denies any tobacco usage or history of. Patient/guardian denies using alcohol. Screenin:24 Abuse screen: Denies threats or abuse. Nutritional screening: No deficits noted. ll1 Tuberculosis screening: No symptoms or risk factors identified. 18:35 Fall Risk IV access (20 points). Total Perez Fall Scale indicates No Risk (0-24 pts). ll1 Assessment: 17:45 Reassessment: No changes from previously documented assessment. Patient and/or family ll1 updated on plan of care and expected duration. Pain level reassessed. Patient is alert, oriented x 3, equal unlabored respirations, skin warm/dry/pink. 18:22 Reassessment: No changes from previously documented assessment. Patient and/or family ll1 updated on plan of care and expected duration. Pain level reassessed. Patient is alert, oriented x 3, equal unlabored respirations, skin warm/dry/pink. 19:56 Reassessment: Patient appears in no apparent distress at this time. No changes from ld1 previously documented assessment. Patient and/or family updated on plan of care and expected duration. Pain level reassessed. Patient is alert, oriented x 3, equal unlabored respirations, skin warm/dry/pink. 20:57 Reassessment: Patient appears in no apparent distress at this time. Patient and/or ld1 family updated on plan of care and expected duration. Pain level reassessed. Patient is alert, oriented x 3, equal unlabored respirations, skin warm/dry/pink. Pt denies any other concerns at this time. Vital Signs: 16:45 BP 125 / 72; Pulse 96; Resp 18; Temp 97.8(O); Pulse Ox 100% on R/A; Weight 86.18 kg; ld1 Height 5 ft. 5 in. (165.10 cm); Pain 9/10; 18:34 BP 109 / 75; Pulse 97; Resp 18; Pulse Ox 100% on R/A; Pain 9/10; ll1 19:56 BP 111 / 77; Pulse 95; Resp 18; Pulse Ox 100% on R/A; ld1 16:45 Body Mass Index 31.62 (86.18 kg, 165.10 cm) ld1 ED Course: 16:19 Patient arrived in ED. ds1 16:48 Triage completed. ld1 16:48 Arm band placed on right wrist. ld1 17:42 Vinayak Thomson PA is PHCP. jr8 17:42 Danny Landon MD is Attending Physician. jr8 17:48 Pramod Delgado RN is Primary Nurse. ll1 18:21 Urine --Ancillary (enter results) Sent. ll1 18:22 Urine --Ancillary Sent. ll1 18:24 Patient has correct armband on for positive identification. Bed in low position. Call ll1 light in reach. Side rails up X 1. Pulse ox on. NIBP on. 18:54 CT Abd/Pelvis - IV Contrast Only In Process Unspecified. EDMS 20:56 No provider procedures requiring assistance completed. IV discontinued, intact, ld1 bleeding controlled, No redness/swelling at site. Administered Medications: 18:34 Drug: morphine 4 mg {Note: rass 0.} Route: IVP; Site: right forearm; ll1 19:27 Follow up: Response: No adverse reaction ll1 18:34 Drug: Zofran (Ondansetron) 4 mg Route: IVP; Site: right forearm; ll1 19:27 Follow up: Response: No adverse reaction ll1 Outcome: 20:30 Discharge ordered by . jr8 20:57 Discharged to home ambulatory, with family. ld1 20:57 Condition: stable 20:57 Discharge instructions given to patient, family, Instructed on discharge instructions, follow up and referral plans. medication usage, Demonstrated understanding of instructions, follow-up care, medications, Prescriptions given X 1. 20:57 Patient left the ED. ld1 Addendum: 06/19/2021 07:07 Addendum: Culture Results: Positive urine culture. No further action required. Bacteria e b sensitive to prescribed antibiotic. Signatures: Dispatcher [employer] EDCO TracyFarrah ds1 Vinayak Thomson PA PA jr8 Catalina Shanks Lynsay, RN RN ll1 Martha Urbina RN RN ld1
[2021-06-16 21:06] VITALS: TEMP 97.8; O2SAT 100
[2021-06-16 21:09] VITALS: BP 111/77
== END 2021-06-16 20:57 | disposition home or self-care (01) ==
LOC: ER 16:12
DX: N39.0 Urinary tract infection, site not specified (principal); E11.9 Type 2 diabetes mellitus without complications; E78.5 Hyperlipidemia, unspecified; Z79.4 Long term (current) use of insulin; Z79.82 Long term (current) use of aspirin
CPT/HCPCS: 87088; 85025; 87086; 80048; 36415; 81025; 80076; 87077; 87186; 83690; 74177; 96375; 96374; 99284; Q9967; J2405; 81003; 81015

== ENCOUNTER 2022-07-21 15:06 | Emergency (ER) | payer OTHER ==
--- OUTSIDE RECORDS SUMMARY | 2022-07-21 15:09 | XMS REPORT | Continuity of Care Document ---
:1975 Author Organization [facility] t Address [address] [place] [address] [address]. [address] [place] [address] Care Team Providers Name Role Phone YSABEL MYLES Attending Clinician Unavailable Payers Payer Name Policy Type Policy Number Effective Date Expiration Date S [facility] - [id number] 2014 00:00:00 OUT OF STATE Problems This patient has no known problems. Allergies, Adverse Reactions, Alerts Allergy Allergy Status Severity Reaction(s) Onset Inactive Treating Comm ents Source Name Type Date Date Clinician NO KNOWN Drug Active [facility] DRUG Class 2-20 ity of [place]ER[place] 00:00: [address] Medications This patient has no known medications. Procedures This patient has no known procedures. Encounters Start End Encounter Admission Attending Care Care Encounter Source Date/Time Date/Time Type Type Clinicians Facility Department ID 2021-03-20 2021-03-20 Outpatient Shannan MYLES [facility] [id number] Univers 08:15:00 08:15:[id number] [facility] 2021-03-20 2021-03-20 Outpatient Shannan MYLES [facility] [id number] Univers 08:15:00 08:15:[address] [facility] Results This patient has no known results.
[2022-07-21 15:51] LABS: Absolute Lymphocytes (CBC) 3.4 K/uL (0.7-4.9); Hematocrit 40.4 % (36.0-45.0); Lymphocytes % 23.2 % (15.3-44.8); MCV 84.4 fL (80-100); RBC Red Blood Cell Count 4.78 M/uL (3.86-4.86)
[2022-07-21 16:10] LABS: Albumin 3.7 g/dL (3.4-5.0); Bilirubin Total 0.7 mg/dL (0.2-1.0); Potassium 4.1 mmol/L (3.5-5.1)
[2022-07-21 16:49] LABS: Urine Blood Trace-intact (Negative); Urine Glucose 2+ (Negative); Urine Protein Negative (Negative)
[2022-07-21 17:01] LABS: Urine Bacteria <20 /HPF (<20); Urine Crystals Unidentified Few /HPF (None Seen); Urine Mucus Slight /HPF (None Seen)
[2022-07-21] MEDS ORDERED: ONDANSETRON 4 MG/2 ML VIAL ONE (17:22)
[2022-07-21] MEDS ORDERED: NA CHLORIDE 0.9% 1,000 ML ONE (17:22)
[2022-07-21] MEDS ORDERED: FAMOTIDINE 20 MG/2 ML VIAL IV ONE (17:22)
--- NOTE | 2022-07-21 17:25 | RAD REPORT ---
EXAM DESCRIPTION: CTAbdomen Pelvis W Contrast - 07/21/2022 5:04 pm CLINICAL HISTORY: abd pain COMPARISON: <Comparisons> TECHNIQUE: CT of the abdomen and pelvis was performed with IV contrast. All CT scans are performed using dose optimization technique as appropriate and may include automated exposure control or mA/KV adjustment according to patient size. FINDINGS: Lower chest: No acute abnormality. Liver: Low-density lesion in the inferior aspect of the right hepatic lobe is most likely a hemangiom a. . Biliary: No biliary ductal dilatation. Cholecystectomy Stomach: No significant focal abnormality. Duodenum: No significant focal abnormality. Pancreas: No significant abnormality. Spleen: No significant abnormality. Adrenal: No suspicious lesions. Kidney/ureter: No hydronephrosis. No renal calculi. Retroperitoneum: No retroperitoneal adenopathy. Vascular: No aneurysm. Bowel: No significant focal abnormality. Normal appendix. Peritoneum: No ascites or free air. Bladder: Grossly unremarkable. Reproductive: No adnexal masses. Bones: No acute fracture. Other: n/a IMPRESSION: No acute intra-abdominal or pelvic finding. Normal appendix.
--- NOTE | 2022-07-21 18:15 | EDPHYS ---
Physician Documentation [facility] Name: Jill Arce Age: 47 yrs Sex: Female : 1975 Arrival Date: 07/21/2022 Time: 15:09 Bed 24 Private MD: Stephanie Mackay ED Physician Mika Caballero HPI: 07/21 17:32 This 47 yrs old Female presents to ER via Ambulatory with complaints of kb Abdominal Pain, Flank Pain - left side. 17:32 The patient presents with abdominal pain in the left upper quadrant. Onset: The kb symptoms/episode began/occurred 3 week(s) ago. The symptoms do not radiate. Associated signs and symptoms: Pertinent positives: nausea, Pertinent negatives: constipation, diarrhea, fever, vomiting. The symptoms are described as constant. Modifying factors: The symptoms are alleviated by nothing, the symptoms are aggravated by nothing. Severity of pain: At its worst the pain was moderate in the emergency department the pain is unchanged. The patient has not experienced similar symptoms in the past. The patient has not recently seen a physician. 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 - Social history:: Smoking status: Patient denies any tobacco usage or history of. ROS: 17:26 Constitutional: Negative for fever, chills, and weight loss. kb 17:26 Abdomen/GI: Positive for abdominal pain, vomiting, diarrhea, Negative for nausea. 17:26 All other systems are negative. Exam: 17:26 Constitutional: This is a well developed, well nourished patient who is awake, alert, kb and in no acute distress. Head/Face: Normocephalic, atraumatic. ENT: Moist Mucous membranes Cardiovascular: Regular rate and rhythm with a normal S1 and S2. No gallops, murmurs, or rubs. No pulse deficits. Respiratory: Respirations even and unlabored. No increased work of breathing. Talking in full sentences Skin: Warm, dry with normal turgor. Normal color. MS/ Extremity: Pulses equal, no cyanosis. Neurovascular intact. Full, normal range of motion. Neuro: Awake and alert, GCS 15, oriented to person, place, time, and situation. Moves all extremities. Normal gait. Psych: Awake, alert, with orientation to person, place and time. Behavior, mood, and affect are within normal limits. 17:26 Abdomen/GI: Inspection: abdomen appears normal, Bowel sounds: normal, in all quadrants, Palpation: soft, in all quadrants, mild abdominal tenderness, in the left upper quadrant. 18:14 ECG was reviewed by the Attending Physician. kb Vital Signs: 15:35 BP 113 / 68; Pulse 104; Resp 18 S; Temp 97.8(TE); Pulse Ox 100% on R/A; Weight 89.81 kg aa5 (R); Height 5 ft. 5 in. (165.10 cm) (R); 18:00 BP 115 / 78; Pulse 87; Resp 18; Temp 97.9; Pulse Ox 99% on R/A; ph 15:35 Body Mass Index 32.95 (89.81 kg, 165.10 cm) aa5 MDM: 15:37 Patient medically screened. kb 17:30 Differential diagnosis: gastritis, gastroesophageal reflux disease, myocardia ischemia kb or infarction, non-specific abd pain, pancreatitis. Data reviewed: vital signs, nurses notes. Consideration of Admission/Observation Escalation of care including admission/observation considered. I considered the following discharge prescriptions or medication management in the emergency department Antibiotics: At this time antibiotics are not recommended. Counseling: I had a detailed discussion with the patient and/or guardian regarding: the historical points, exam findings, and any diagnostic results supporting the discharge/admit diagnosis, lab results, radiology results, the need for outpatient follow up, a family practitioner, to return to the emergency department if symptoms worsen or persist or if there are any questions or concerns that arise at home. 07/21 15:38 Order name: CBC with Diff; Complete Time: 16:05 kb 07/21 15:38 Order name: CMP; Complete Time: 16:11 kb 07/21 15:38 Order name: Lipase; Complete Time: 16:11 kb 07/21 15:38 Order name: Urine Microscopic Only; Complete Time: 17:06 kb 07/21 16:49 Order name: Urine Dipstick-Ancillary; Complete Time: 16:53 EDMS 07/21 16:50 Order name: Urine --Ancillary (enter results); Complete Time: 16:56 em1 07/21 15:38 Order name: CT Abd/Pelvis - IV Contrast Only; Complete Time: 17:26 kb 07/21 15:38 Order name: IV Saline Lock; Complete Time: 15:45 kb 07/21 15:38 Order name: Labs collected and sent; Complete Time: 15:45 kb 07/21 15:38 Order name: Urine Dipstick-Ancillary (obtain specimen); Complete Time: 16:48 kb 07/21 17:30 Order name: EKG; Complete Time: 17:30 kb 07/21 17:30 Order name: EKG - Nurse/Tech; Complete Time: 18:09 kb EC:14 Rate is 92 beats/min. Rhythm is regular. QRS [place] is Normal. VT interval is normal at kb 160 msec. QRS interval is normal at 132 msec. QT interval is prolonged at 507 msec. Administered Medications: 17:25 Drug: NS 0.9% 1000 ml Route: IV; Rate: 1 bolus; Site: right antecubital; ph 19:48 Follow up: IV Status: Completed infusion ph 17:25 Drug: Pepcid (famotidine) 20 mg Route: IVP; Site: right antecubital; ph 17:25 Drug: Zofran (Ondansetron) 4 mg Route: IVP; Site: right antecubital; ph Disposition Summary: 07/21/22 18:15 Discharge Ordered Location: Home kb Condition: Stable kb Diagnosis - Upper abdominal pain, unspecified kb Followup: kb - With: Emergency Department - When: As needed - Reason: Worsening of condition Followup: kb - With: Private Physician - When: 2 - 3 days - Reason: Recheck today's complaints, Continuance of care, Re-evaluation by your physician Discharge Instructions: - Discharge Summary Sheet kb - Abdominal Pain, Adult, [id number] kb Forms: - Medication Reconciliation Form kb - Thank You Letter kb - Antibiotic Education kb - Prescription Opioid Use kb - Family Work Release ph Prescriptions: - Protonix 40 mg Oral Tablet - take 1 tablet by ORAL route once daily; 30 tablet; Refills: 0, Product kb Selection Permitted - Zofran 4 mg Oral Tablet - take 1 tablet by ORAL route every 6 hours As needed; 20 tablet; Refills: 0, kb Product Selection Permitted Signatures: Dispatcher [employer] Karol Page, MUSEUM SECURITY CHIEF-C MUSEUM SECURITY CHIEF-Ckb Jacqueline Pierce, RN RN aa5 Angeline Boone RN RN ph
--- NOTE | 2022-07-21 18:15 | ER ---
Nurse's Notes [facility] Name: Jill Arce Age: 47 yrs Sex: Female : 1975 Arrival Date: 07/21/2022 Time: 15:09 Bed 24 Private MD: Stephanie Mackay Diagnosis: Upper abdominal pain, unspecified Presentation: 07/21 15:35 Chief complaint: Patient states: LUQ pain that began 2-3 weeks ago, reports pain became aa5 worse last night, reports nausea x 2 days ago. Coronavirus screen: nausea. Ebola Screen: Patient denies travel to an Ebola-affected area in the 21 days before illness onset. Initial Sepsis Screen: Does the patient meet any 2 criteria? HR > 90 bpm. Does the patient have a suspected source of infection? No. Patient's initial sepsis screen is negative. Risk Assessment: Do you want to hurt yourself or someone else? Patient reports no desire to harm self or others. Onset of symptoms was July 2022. 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 - Social history:: Smoking status: Patient denies any tobacco usage or history of. Screenin:00 [facility] ED Fall Risk Assessment (Adult) History of falling in the last 3 months, ph including since admission No falls in past 3 months (0 pts) Confusion or Disorientation No (0 pts) Intoxicated or Sedated No (0 pts) Impaired Gait No (0 pts) Mobility Assist Device Used No (0 pt) Altered Elimination No (0 pt) Score/Fall Risk Level 0 - 2 = Low Risk Oriented to surroundings, Maintained a safe environment. Abuse screen: Denies threats or abuse. Denies injuries from another. Nutritional screening: No deficits noted. Tuberculosis screening: No symptoms or risk factors identified. Assessment: 17:00 General: Appears in no apparent distress. comfortable, Behavior is calm, cooperative, ph appropriate for age. Pain: Complains of pain in left upper quadrant. Neuro: Level of Consciousness is awake, alert, obeys commands, Oriented to person, place, time, situation. Cardiovascular: Capillary refill < 3 seconds in bilateral fingers. Vital Signs: 15:35 BP 113 / 68; Pulse 104; Resp 18 S; Temp 97.8(TE); Pulse Ox 100% on R/A; Weight 89.81 kg aa5 (R); Height 5 ft. 5 in. (165.10 cm) (R); 18:00 BP 115 / 78; Pulse 87; Resp 18; Temp 97.9; Pulse Ox 99% on R/A; ph 15:35 Body Mass Index 32.95 (89.81 kg, 165.10 cm) aa5 ED Course: 15:09 Patient arrived in ED. am2 15:09 Stephanie Mackay MD is Private Physician. am2 15:34 Karol Mayfield FNP-C is [facility]. kb 15:34 Mika Caballero MD is Attending Physician. kb 15:35 Arm band placed on. aa5 15:36 Triage completed. aa5 15:45 Initial lab(s) drawn, by in, sent to lab. Inserted saline lock: 20 gauge in right aa5 antecubital area, using aseptic technique. Blood collected. 17:00 Patient has correct armband on for positive identification. Bed in low position. Call ph light in reach. Side rails up X 1. Client placed on continuous cardiac and pulse oximetry monitoring. NIBP monitoring applied. 17:06 CT Abd/Pelvis - IV Contrast Only In Process Unspecified. EDMS 17:16 Angeline Boone, RN is Primary Nurse. ph 18:09 EKG done, by ED staff, reviewed by Karol DICKSON. em1 18:50 No provider procedures requiring assistance completed. IV discontinued, intact, ph bleeding controlled, No redness/swelling at site. Pressure dressing applied. Administered Medications: 17:25 Drug: NS 0.9% 1000 ml Route: IV; Rate: 1 bolus; Site: right antecubital; ph 19:48 Follow up: IV Status: Completed infusion ph 17:25 Drug: Pepcid (famotidine) 20 mg Route: IVP; Site: right antecubital; ph 17:25 Drug: Zofran (Ondansetron) 4 mg Route: IVP; Site: right antecubital; ph Medication: 17:00 VIS not applicable for this client. ph Outcome: 18:15 Discharge ordered by . maximo 18:55 Patient left the ED. ph 18:55 Discharged to home ambulatory, with family. ph 18:55 Condition: good 18:55 Discharge instructions given to patient, Instructed on discharge instructions, follow up and referral plans. medication usage, Demonstrated understanding of instructions, follow-up care, medications, Prescriptions given X 2. Signatures: Dispatcher [employer] EDKarol Trvais, YOAN-Ezequiel GARGP-Rik Perez em1 Jacqueline Pierce, RN RN aa5 Angeline Boone, RN RN Isabella Davidson am2 Corrections: (The following items were deleted from the chart) 15:37 15:35 BP 113 / 68; Pulse 104bpm; Resp 18bpm; Spontaneous; Pulse Ox 100% RA; Temp 97.8F aa5 Temporal; aa5
[2022-07-21 19:00] VITALS: BP 113/68; TEMP 97.8; O2SAT 100
--- NOTE | 2022-07-22 14:22 | EKG ---
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
== END 2022-07-21 18:55 | disposition home or self-care (01) ==
LOC: ER 15:06
DX: R10.12 Left upper quadrant pain (principal); E11.9 Type 2 diabetes mellitus without complications
CPT/HCPCS: 96361; 93005; 85025; 36415; 81025; 83690; 80053; 74177; 96375; 96374; 99284; Q9967; J7030; J2405; 81003; 81015

== ENCOUNTER 2025-04-16 17:38 | Emergency (ER) | payer OTHER ==
[2025-04-16] MEDS ORDERED: NA CHLORIDE 0.9% 1,000 ML ONE (19:32)
[2025-04-16] MEDS ORDERED: MORPHINE 4 MG/ML SYR ONE (19:32)
[2025-04-16] MEDS ORDERED: ONDANSETRON 4 MG/2 ML VIAL ONE (19:32)
[2025-04-16 19:44] LABS: PT Prothrombin Time 11.6 SECONDS (10-13.0); PTT, Activated Partial Thromb 32.1 SECONDS (27.2-37.4); Protime INR 1.03
[2025-04-16 19:49] LABS: Absolute Lymphocytes (CBC) 3.9 K/uL (0.7-4.9); Hematocrit 41.9 % (36.0-45.0); Hemoglobin 14.2 g/dL (12.0-15.0); MCH 29.1 pg (27.0-35.0); MCHC 33.8 g/dL (32.0-36.0); MCV 86.1 fL (80-100); MPV 10.6 fL (7.6-11.3); Nucleated RBC Absolute Count 0.0 (0-0); Nucleated Red Blood Cells % 0.1 % (0-0); RBC Red Blood Cell Count 4.87 M/uL (3.86-4.86); White Blood Count 8.20 thou/uL (4.3-10.9)
[2025-04-16 19:53] LABS: Sqamous Epithelial <5 /HPF (None Seen); Urine Culture Reflex Order NOT NEEDED; Urine Microscopic Reflex YN ORDER UMIC
[2025-04-16 19:54] LABS: ALT/SGPT 20.0 U/L (13-56); AST/SGOT 16.0 U/L (15-37); Albumin 4.1 g/dL (3.4-5.0); Albumin/Globulin Ratio 1.0 (1.1-1.8); Alkaline Phosphatase 56.0 U/L (45-117); Anion Gap 10.7 mEq/L (5.0-15.0); BUN Blood Urea Nitrogen 18.0 mg/dL (7-18); Globulin 4.2 g/dL (2.3-3.5); Glucose Level 99.0 mg/dL (74-106); Lipase 54.0 U/L (13-75); Potassium 3.7 mEq/L (3.5-5.1)
--- NOTE | 2025-04-16 20:42 | RAD REPORT ---
EXAMINATION: Abdomen Pelvis W Contrast CLINICAL INDICATION: Female, 50 years old.ABD PAIN TECHNIQUE: CT abdomen and pelvis was performed, after the administration of IV contrast, [facility]. Axial, sagittal and coronal reconstructions were obtained. One or more of the following dose reduction techniques were used: Automated exposure control, adjustment of the mA and/o r kV according to patient size, and/or iterative reconstruction. Unless otherwise specified, incidental findings do not require dedicated imaging follow-up. [id number]. COMPARISON: 07/21/2022 FINDINGS: LOWER CHEST: No acute process identified. No significant pericardial effusion. UPPER GI: Partial gastrectomy. Mild gastric wall thickening which is nonspecific but could reflect ga stritis. LIVER: Hepatic steatosis, but otherwise unremarkable. GALLBLADDER/BILE DUCTS: Cholecystectomy. Mild extra-hepatic biliary ductal dilatation is likely relat ed to the post-cholecystectomy state. Consider correlating with LFT's.? PANCREAS: No mass, ductal dilation, or jacinto-pancreatic fluid. SPLEEN: Unremarkable. ADRENALS: No adrenal masses. KIDNEYS AND URETERS: No hydronephrosis. No suspicious renal mass. No renal calculi. ABDOMINAL AORTA AND OTHER VESSELS: Normal caliber aorta and IVC. PERITONEUM: No abnormal free fluid. No free air. LYMPH NODES: No pathologic lymphadenopathy. ABDOMINAL WALL: Unremarkable SMALL BOWEL/COLON: Small bowel has normal course and caliber. No colonic wall thickening or pericolon ic inflammatory changes. Normal appendix. There is some nonspecific fluid present within the small bowel. URINARY BLADDER: Underdistended but grossly unremarkable. REPRODUCTIVE ORGANS: No pathologic process. MUSCULOSKELETAL: No acute or suspicious osseous abnormality. ADDITIONAL FINDINGS: None. IMPRESSION: No acute findings within the abdomen or pelvis. No appendicitis. No urinary tract calculi. Partial gastrectomy with possible gastritis.
--- NOTE | 2025-04-16 20:46 | EDPHYS ---
Physician Documentation [facility] Name: Jill Arce Age: 50 yrs Sex: Female : 1975 Arrival Date: 04/16/2025 Time: 17:38 Bed [id number] Private MD: ED Physician Mika Caballero HPI: 04/16 17:49 This 50 yrs old Female presents to ER via Ambulatory with complaints of sb4 Abdominal Pain. 17:49 Patient reports worsening right lower quadrant pain for about 2 weeks now. States that sb4 it began periumbilically and then traveled to the right lower quadrant. States that it was intermittent but now it is constant, the worst it has ever been today. Endorses nausea but no vomiting. Denies any fever or chills. Denies any urinary symptoms. 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 - Infectious Disease History:: Denies. - Social history:: Smoking status: Patient denies any tobacco usage or history of. ROS: 17:49 Constitutional: Negative for fever, chills, and weight loss, sb4 17:49 Abdomen/GI: Positive for abdominal pain, nausea, 17:49 All other systems are negative, Exam: 17:49 Head/Face: Normocephalic, atraumatic. Eyes: Extra-ocular motions intact. Periorbital sb4 areas with no swelling, redness, or edema. ENT: Mucous membranes moist. Respiratory: No increased work of breathing, no retractions or nasal flaring. 17:49 Constitutional: The patient appears alert, awake, uncomfortable, 17:49 Cardiovascular: Rate: tachycardic, Rhythm: regular, 17:49 Abdomen/GI: Inspection: abdomen appears normal, Bowel sounds: normal, Palpation: soft, moderate abdominal tenderness, in the right lower quadrant, involuntary guarding, is elicited in the right lower quadrant, Indicators: McBurney's point is tender, 17:49 Skin: Appearance: flushing, noted on the face, Vital Signs: 17:46 BP 144 / 93; Pulse 103; Resp 18; Temp 98.4; Pulse Ox 100% ; Weight 63.5 kg; Height 5 me1 ft. 5 in. ; Pain 9/10; 19:45 BP 126 / 76; Pulse 85; Resp 17; Temp 98.1(O); Pulse Ox 100% on R/A; Weight 63.5 kg; tb4 Height 5 ft. 5 in. (R); Pain 8/10; 20:46 BP 114 / 67; Pulse 78; Resp 18; Pulse Ox 100% ; Pain 4/10; tb4 19:45 Body Mass Index 23.30 (63.50 kg, 165.1 cm) tb4 17:46 Pain Scale: Adult me1 19:45 Pain Scale: Adult tb4 20:46 Pain Scale: Adult tb4 MDM: 17:41 Medical Screening Exam initiated sb4 17:50 Differential diagnosis: appendicitis, diverticulitis, non-specific abd pain, sb4 Pyelonephritis, Ureterolithiasis, urinary tract infection. Historians other than the Patient: Daughter/Son: daughter. Care significantly affected by the following chronic conditions: Diabetes. 20:53 Data reviewed: vital signs, nurses notes, lab test result(s), radiologic studies, CT sb4 scan, and as a result, I will discharge patient. Counseling: I had a detailed discussion with the patient and/or guardian regarding the historical points, exam findings, and any diagnostic results supporting the discharge/admit diagnosis, lab results, radiology results, the need for outpatient follow up, for definitive care, to return to the emergency department if symptoms worsen or persist or if there are any questions or concerns that arise at home. Special discussion: Based on the patient's Hx, exam, and Dx evaluation, there is no indication for emergent surgery or inpatient Tx. It is understood by the patient/guardian that if the Sx's persist or worsen they need to return immediately for re-evaluation. 04/16 17:48 Order name: Blood Culture Adult (2) sb4 04/16 17:48 Order name: CBC with Diff; Complete Time: 19:53 sb4 04/16 17:48 Order name: CMP; Complete Time: 19:55 sb4 04/16 17:48 Order name: Lactate w/ 2H reflex if indic.; Complete Time: 19:48 sb4 04/16 17:48 Order name: Protime (+inr); Complete Time: 19:44 sb4 04/16 17:48 Order name: Ptt, Activated; Complete Time: 19:44 sb4 04/16 17:48 Order name: Lipase; Complete Time: 19:55 sb4 04/16 17:49 Order name: UA Rfx Grayson Cult if indicated; Complete Time: 19:53 sb4 04/16 17:48 Order name: CT Abd/Pelvis - IV Contrast Only; Complete Time: 20:43 sb4 04/16 17:48 Order name: EKG; Complete Time: 17:48 sb4 04/16 17:48 Order name: Accucheck; Complete Time: 20:28 sb4 04/16 17:48 Order name: Cardiac monitoring; Complete Time: 21:08 sb4 04/16 17:48 Order name: EKG - Nurse/Tech; Complete Time: 21:17 sb4 04/16 17:48 Order name: IV Saline Lock - Large Bore; Complete Time: 19:23 sb4 04/16 17:48 Order name: Labs collected and sent; Complete Time: 19:23 sb4 04/16 17:48 Order name: O2 Per Protocol; Complete Time: 19:23 sb4 04/16 17:48 Order name: O2 Sat Monitoring; Complete Time: 19:23 sb4 04/16 17:48 Order name: Vital Signs; Complete Time: 20:28 sb4 EC:19 Rate is 82 beats/min. Rhythm is regular, Normal Sinus Rhythm with Right bundle branch sb4 block. PA interval is normal at 150 msec. QRS interval is normal at 128 msec. QT interval is prolonged at 422 msec. No Q waves. T waves are Normal. No ST changes noted. Clinical impression: No evidence of ischemia. Interpreted by me. Reviewed by me. Administered Medications: 19:43 Drug: NS 0.9% IV 1000 ml IV at 1 bolus Per protocol; to be given as a bolus over 60 tb4 minutes Route: IV; Rate: 1 bolus; Site: left forearm; 21:18 Follow up: Response: No adverse reaction; IV Status: Completed infusion tb4 19:44 Drug: Ondansetron IVP 4 mg IVP once; over 2 minutes Route: IVP; Site: left forearm; tb4 21:18 Follow up: Response: No adverse reaction; Nausea is decreased tb4 19:44 Drug: morphine IVP or IV 4 mg IVP once over 4 mins Route: IVP; Infused Over: 4 mins; tb4 Site: left forearm; 21:24 Follow up: Response: No adverse reaction; Pain is decreased; RASS: Alert and Calm (0) tb4 21:23 Drug: Rocephin IV 1 grams IV at calculated rate once; Given slow IV push per pharmacy tb4 instructions Route: IV; Rate: calculated rate; Site: left forearm; 21:57 Follow up: Response: No adverse reaction; IV Status: Completed infusion tb4 Disposition Summary: 04/16/25 20:46 Discharge Ordered Notes: Location: Home sb4 Problem: new sb4 Symptoms: have improved sb4 Condition: Stable sb4 Diagnosis - UTI/ Urinary tract infection, site not specified sb4 - Acute gastritis without bleeding sb4 Followup: sb4 - With: Emergency Department - When: As needed - Reason: Trouble breathing, Worsening of condition Discharge Instructions: - Discharge Summary Sheet sb4 - Gastritis, Adult sb4 - Urinary Tract Infection, Adult, [id number] sb4 Forms: - Medication Reconciliation Form sb4 - Antibiotic Education sb4 - Prescription Opioid Use sb4 - Patient Portal Instructions sb4 - Leadership Thank You Letter sb4 Prescriptions: - ondansetron 4 mg Oral Tablet,disintegrating - take 1 tablet ORAL route every 6 hours as needed for nausea and vomiting; 10 sb4 tablet; Refills: 0, Product Selection Permitted - Protonix 40 mg Oral Tablet - take 1 tablet ORAL route once daily; 30 tablet; Refills: 0, Product Selection sb4 Permitted - Tramadol 50 mg Oral Tablet - take 1 tablet ORAL route every 8 hours as needed; 12 tablet; Refills: 0, sb4 Product Selection Permitted - Macrobid 100 mg Oral Capsule - take 1 capsule ORAL route every 12 hours for 7 days; 14 capsule; Refills: 0, sb4 Product Selection Permitted Signatures: Dispatcher [employer] Estela Porter PA-C PA-C sb4 Seda Kate, RN RN me1 Giulia Iqbal RN RN tb4 Corrections: (The following items were deleted from the chart) 17:48 17:48 PSHx: Cholecystectomy; me1 me1
--- NOTE | 2025-04-16 20:46 | ER ---
Nurse's Notes [facility] Name: Jill Arce Age: 50 yrs Sex: Female : 1975 Arrival Date: 04/16/2025 Time: 17:38 Bed [id number] Private MD: Diagnosis: UTI/ Urinary tract infection, site not specified;Acute gastritis without bleeding Presentation: 04/16 17:46 Chief complaint: Patient states: intermittent RLQ pain that is worse today, Pain 9/10 me1 with nausea. Coronavirus screen: Vaccine status: Patient reports receiving the 2nd dose of the covid vaccine. Ebola Screen: No symptoms or risks identified at this time. Initial Sepsis Screen: Does the patient meet any 2 criteria? HR > 90 bpm. Does the patient have a suspected source of infection? No. Patient's initial sepsis screen is negative. Risk Assessment: Do you want to hurt yourself or someone else? Patient reports no desire to harm self or others. Onset of symptoms is unknown. 17:46 Method Of Arrival: Ambulatory [facility] [place] 17:46 Acuity: DAWOOD 3 me1 Triage Assessment: 21:59 General: Appears uncomfortable, Behavior is calm, cooperative. Pain: Complains of pain tb4 in abdomen Pain does not radiate. EENT: No deficits noted. No signs and/or symptoms were reported regarding the EENT system. Neuro: Level of Consciousness is awake, alert, obeys commands, Oriented to person, place, time, situation, [employer] are equal bilaterally Moves all extremities. Full function Gait is steady, Speech is normal, is slurred, Facial symmetry appears normal. Cardiovascular: Patient's skin is warm and dry. Respiratory: Airway is patent Respiratory effort is even, unlabored, Respiratory pattern is regular, symmetrical. GI: Abdomen is round non-distended. : No deficits noted. No signs and/or symptoms were reported regarding the genitourinary system. Derm: No deficits noted. No signs and/or symptoms reported regarding the dermatologic system. Musculoskeletal: No deficits noted. No signs and/or symptoms reported regarding the musculoskeletal system. Circulation, motion, and sensation intact. Range of motion: intact in all extremities. 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 - Infectious Disease History:: Denies. - Social history:: Smoking status: Patient denies any tobacco usage or history of. Screenin:45 [facility] ED Fall Risk Assessment (Adult) History of falling in the last 3 months, tb4 including since admission No falls in past 3 months (0 pts) Confusion or Disorientation No (0 pts) Intoxicated or Sedated No (0 pts) Impaired Gait No (0 pts) Mobility Assist Device Used No (0 pt) Altered Elimination No (0 pt) Score/Fall Risk Level 0 - 2 = Low Risk Maintained a safe environment. Abuse screen: Denies threats or abuse. Denies injuries from another. Nutritional screening: No deficits noted. Tuberculosis screening: No symptoms or risk factors identified. Assessment: 20:25 Reassessment: Patient just returned from CT scan. tb4 21:58 GI: Bowel sounds present X 4 quads. Abd is soft Abdomen is tender to palpation X 4 tb4 quads. Reports cramping, nausea. Vital Signs: 17:46 BP 144 / 93; Pulse 103; Resp 18; Temp 98.4; Pulse Ox 100% ; Weight 63.5 kg; Height 5 me1 ft. 5 in. ; Pain 9/10; 19:45 BP 126 / 76; Pulse 85; Resp 17; Temp 98.1(O); Pulse Ox 100% on R/A; Weight 63.5 kg; tb4 Height 5 ft. 5 in. (R); Pain 8/10; 20:46 BP 114 / 67; Pulse 78; Resp 18; Pulse Ox 100% ; Pain 4/10; tb4 19:45 Body Mass Index 23.30 (63.50 kg, 165.1 cm) tb4 17:46 Pain Scale: Adult me1 19:45 Pain Scale: Adult tb4 20:46 Pain Scale: Adult tb4 ED Course: 17:40 Patient arrived in ED. al6 17:40 Estela Iqbal PA-C is PHCP. sb4 17:40 Mika Caballero MD is Attending Physician. sb4 17:48 Triage completed. me1 17:48 Arm band placed on Patient placed in waiting room. me1 19:23 Initial lab(s) drawn, by me, sent to lab. Inserted saline lock: 20 gauge in left rk3 forearm, using aseptic technique. Blood collected. Flushed with 10 mL NS. 19:45 Patient has correct armband on for positive identification. Bed in low position. Call tb4 light in reach. Side rails up X 1. Adult w/ patient. Client placed on continuous cardiac and pulse oximetry monitoring. NIBP monitoring applied. Pulse ox on. Door closed. Warm blanket given. 19:45 No provider procedures requiring assistance completed. Urine collected: clean catch tb4 specimen, clear. 20:22 CT Abd/Pelvis - IV Contrast Only In Process Unspecified. EDMS 20:26 CT scan. tb4 21:57 IV discontinued, intact, bleeding controlled, No redness/swelling at site. Pressure tb4 dressing applied. 22:00 Provided Education on: Take medication as prescribed. tb4 Administered Medications: 19:43 Drug: NS 0.9% IV 1000 ml IV at 1 bolus Per protocol; to be given as a bolus over 60 tb4 minutes Route: IV; Rate: 1 bolus; Site: left forearm; 21:18 Follow up: Response: No adverse reaction; IV Status: Completed infusion tb4 19:44 Drug: Ondansetron IVP 4 mg IVP once; over 2 minutes Route: IVP; Site: left forearm; tb4 21:18 Follow up: Response: No adverse reaction; Nausea is decreased tb4 19:44 Drug: morphine IVP or IV 4 mg IVP once over 4 mins Route: IVP; Infused Over: 4 mins; tb4 Site: left forearm; 21:24 Follow up: Response: No adverse reaction; Pain is decreased; RASS: Alert and Calm (0) tb4 21:23 Drug: Rocephin IV 1 grams IV at calculated rate once; Given slow IV push per pharmacy tb4 instructions Route: IV; Rate: calculated rate; Site: left forearm; 21:57 Follow up: Response: No adverse reaction; IV Status: Completed infusion tb4 Medication: 19:45 VIS not applicable for this client. tb4 Outcome: 20:46 Discharge ordered by MD. sb4 21:57 Discharged to home ambulatory, with family, tb4 21:57 Condition: stable 21:57 Discharge instructions given to patient, Instructed on discharge instructions, follow up and referral plans. Demonstrated understanding of instructions, follow-up care, medications, Prescriptions given X 4, 22:01 Patient left the ED. tb4 Signatures: Dispatcher [employer] Estela Porter, JASON GOEMZ sb4 Seda Kate, RN RN me1 Zina Millan al6 Ronald Guillen rk3 Giulia Iqbal RN RN tb4 Corrections: (The following items were deleted from the chart) 17:48 17:48 PSHx: Cholecystectomy; me1 me1
[2025-04-16] MEDS ORDERED: CEFTRIAXONE 1000 MG/VIAL ONE (21:16)
[2025-04-16 23:08] VITALS: TEMP 98.6
[2025-04-16 23:09] VITALS: BP 109/88; O2SAT 98
== END 2025-04-16 22:01 | disposition home or self-care (01) ==
LOC: ER 17:38
DX: N39.0 Urinary tract infection, site not specified (principal); K29.00 Acute gastritis without bleeding
CPT/HCPCS: 96365; 96361; 93005; 87040 ×2; 85025; 81001; 36415; 85610; 83605; 85730; 83690; 80053; 74177; 96375; 99284; Q9967; J2405; J7030; J0696